=== PATIENT | female | born 1955 | race Caucasian/White ===

== ENCOUNTER 2018-07-08 03:41 | Inpatient (IN) | payer OTHER ==
[~2018-07-08] VITALS: Ht 167.6 cm; Wt 104.3 kg
[~2018-07-08 03:41] MED LIST: AMBIEN10 M1 PO; ENABLEX15 M1 PO; LIPITOR40 M1 PO; METOPROLOL SUCC50 M2 PO; PERCOCET 10-321 EACH PO; TRINTELLIX5 MG PO
--- NOTE | 2018-07-08 08:07 | Admission Core Measures ---
Acute Coronary Syndrome (CM) ACS Core Measures Acute Coronary Syndrome Diagnosis No Congestive Heart Failure (NEW) CHF Core Measures Congestive Heart Failure Diagnosis No Cerebrovascular Accident CVA Core Measures CVA/TIA Diagnosis No Venous Thromboembolism VTE Core Bianka (View Protocol) VTE Risk Factors Surgery No Mechanical VTE Prophylaxis d/t N/A MechProphylax Ordered No VTE Pharm Prophylaxis d/t NA PharmProphylax ordered Problem List As ranked by this Provider includes Assessment & Plan 1. Morbid obesity 2. Hypertension 3. S/P laparoscopic sleeve gastrectomy HOME MEDS Home Med List Atorvastatin Calcium (Lipitor) 40 MG TABLET 1 TAB PO DAILY CHOLESTEROL ( Reported) Darifenacin Hydrobromide (Enablex) 15 MG TAB.ER.24H 1 TAB PO DAILY URINARY FREQ (Reported) Metoprolol Succinate 50 MG TAB.ER.24H 1 TAB PO DAILY BP (Reported) Oxycodone HCl/Acetaminophen (Percocet 10-325 MG Tablet) 10 MG-325 MG TABLET 1 TAB PO 4 TIMES/DAY PRN NECK PAIN (Reported) Vortioxetine Hydrobromide (Trintellix) 5 MG TABLET 10 MG PO DAILY BEHAVIOR ( Reported) Zolpidem Tartrate (Ambien) 10 MG TABLET 1 TAB PO QPMP PRN SLEEP (Reported)
--- NOTE | 2018-07-08 12:20 | Operative Report ---
Operative/Inv Procedure Report Surgery Date: 07/08/18 Name of Procedure: Laparoscopic Sleeve Gastrectomy Pre-Operative Diagnosis: Morbid Obesity BMI 40, HTN, Hyperlipidemia Post-Operative Diagnosis: Same Estimated Blood Loss: less than 50ml Surgeon/Electrical Cad Technician: Robbie Frank DO Anesthesia: general endotracheal tube IV Fluids: 1000 cc Drains: None Specimens: Stomach Complications: None Condition: Stable Operative Indication: This is a 62-year-old female who presented to the office for workup for bariatric surgery. After appropriate workup was completed I discussed with the patient the band, the sleeve, and the gastric bypass. The patient chose to undergo a sleeve gastrectomy. All risks including but not limited to bleeding, infection, leak, stricture, injury to surrounding bowel/esophagus/stomach/liver/ spleen, long-term reflux, DVT/PE, and mortality of 10/999 patients were discussed in detail. The patient understood everything and decided to proceed. Operative/Procedure Note Note: The patient was brought to the operating room and placed on the operating room table in supine position. Venodyne stockings were placed and adequate general endotracheal anesthesia was obtained. The patient was prepped and draped in standard surgical fashion. Began the procedure by making a 2 cm transverse incision supraumbilically and slightly to the left of the midline. Then using a 12 mm clear Visiport and a 10 mm 0 laparoscope, the abdominal cavity was accessed. Great care was taken to go through the anterior rectus sheath, the posterior rectus sheath, and through the peritoneum. Once we entered the peritoneum the abdominal cavity was insufflated to 15 mmHg. Upon initial examination no obvious gross pathology was seen. Accessory trocars were placed, 5 mm in the epigastrium for the Abdiel liver retractor. The retractor was inserted and the liver was retracted anteriorly exposing the hiatus, no hiatal hernia was seen. 5 mm ports were placed in the right and left upper quadrant, a 5 mm left lateral port, and a 15 mm right lateral port. Began the procedure by mobilizing the greater curvature of the stomach approximately 7 cm from the pylorus. Once the retrogastric space was reached the whole greater curvature was mobilized maintaining hemostasis using Harmonic scalpel. Full hiatal dissection was performed, no hiatal hernia was seen. Posterior adhesions were taken down using Harmonic scalpel as well. Once the stomach was adequately mobilized a 38 [place] bougie was inserted and placed along the lesser curvature of the stomach. Once the bougie was in the appropriate position we began creating our sleeve, two 60 mm black staple loads with seamguard followed by two 60 mm purple staple loads with seamguard as well and finished with a 45 mm purple plain load. Great care was taken to leave ample room at the incisura angularis, to prevent any twisting or kinking of the sleeve, to stay lateral to the esophagogastric fat pad, and to do a full fundal excision. At the completion of the staple line the staple line was examined, it appeared intact and no obvious bleeding was noted. The bougie was removed, the sleeve was lying nicely without any twisting or kinking. The resected stomach was removed through the right lateral port site. The port and the left upper quadrant were irrigated until clear. All ports were removed under direct visualization no obvious bleeding was noted. The 15 mm port site fascia was closed using 0 Vicryl suture. The skin was closed using 4-0 Monocryl. Steri-Strips and dressings were placed. The patient was successfully extubated and transferred to the recovery room in stable condition. The patient tolerated the procedure well with no complications. Findings: No hiatal hernia, 38 Fr bougie CC: Zeke ABREU,Mando
--- NOTE | 2018-07-08 13:02 | Surg Short-stay <48hrs Dis Sum ---
Visit Information Visit Dates Admission Date: 07/08/18 Discharge Date: 07/10/18 Surgical Short Stay DC Summary Admission Diagnosis: Morbid Obesity (BMI 40), HTN, Hyperlipidemia Final Diagnosis: Morbid Obesity (BMI 40), HTN, Hyperlipidemia Procedure(s): Surgery Date: 07/08/18 Name of Procedure: Laparoscopic Sleeve Gastrectomy Summary/Significant Findings: Electively scheduled laparoscopic sleeve gastrectomy on 07/08/18 by , for history of morbid obesity (BMI 40), hypertension, and hyperlipidemia. Started on a stage 1 bariatric diet post-operatively. Upper gi study done POD#1 to rule out leak and obstruction. Pain control transitioned from iv to oral medication as able. Lovenox teaching done prior to discharge home, according to her pre-operative risk assessment. Condition at Discharge: stable Discharge Disposition: home or self care Discharge instructions provided to patient/family: Yes Post discharge follow-up plan: one week follow up with continue lovenox injections as directed Copies to: Zeke ABREU,Mando
--- NOTE | 2018-07-08 13:06 | Patient Discharge Instructions ---
Discharge Instructions General Discharge Information You were seen/treated for: Morbid Obesity (BMI 40), HTN, Hyperlipidemia You had these procedures: Surgery Date: 07/08/18 Name of Procedure: Laparoscopic Sleeve Gastrectomy Watch for these problems: fever>101.3, increased pain, redness/swelling/drainage, dizziness, shortness of breath, chest pains No bath, but you may shower: Yes Other wound care: ok to remove outer dressings. leave white steri strips in place. keep incisions clean & dry. Diet Continue normal diet: No Recommended Diet: Bariatric Additional DIET Information: weekly bariatric stage diet advancement as tolerated, as directed Activity Full Activity/No Limits: No Activity Self Limited: Yes Pounds, do NOT lift more than: 10 Other activity limits: no heavy lifting. no strenuous activity. Acute Coronary Syndrome Inclusion Criteria At DC or during hospital stay patient has or had the following: ACS DIAGNOSIS No Discharge Core Measures Meds if any: Prescribed or Continued at Discharge Meds if any: NOT Prescribed or Continued at Discharge Congestive Heart Failure Inclusion Criteria At DC or during hospital stay patient has or had the following: CHF DIAGNOSIS No Discharge Core Measures Meds if any: Prescribed or Continued at Discharge Meds if any: NOT Prescribed or Continued at Discharge Cerebrovascular accident Inclusion Criteria At DC or during hospital stay patient has or had the following: CVA/TIA Diagnosis No Discharge Core Measures Meds if any: Prescribed or Continued at Discharge Meds if any: NOT Prescribed or Continued at Discharge Venous thromboembolism Inclusion Criteria VTE Diagnosis No VTE Type NONE VTE Confirmed by (Test) NONE Discharge Core Measures - Per Current guidelines, there needs to be overlap - treatment for the first 5 days of Warfarin therapy. - If discharged on Warfarin prior to 5 days of - overlap therapy, the patient will need to be - assessed for post discharge needs including - *Post discharge parental anticoagulation - *Warfarin and/or parental anticoagulation education - *Follow up date to check INR post discharge At least 5 days overlap therapy as Inpatient No Meds if any: Prescribed or Continued at Discharge Note: Overlap Therapy is Warfarin and Anticoagulant Meds if any: NOT Prescribed or Continued at Discharge
[2018-07-08] MEDS ORDERED: LOVENOX40 MG/0.1 SC (13:10)
[2018-07-08] MEDS ORDERED: OXYCODONE HCL10 M2 PO (13:10)
[2018-07-08] MEDS ORDERED: PROTONIX40 M3 PO (13:10)
[2018-07-08 14:45] VITALS: BP 150/76
--- NOTE | 2018-07-08 14:58 | PN- Student ---
Cortney Black 07/08/18 6319: Subjective Subjective: Pt complaining of abdominal/epigastric pain that is currently 5/10. Pain has decreased from a 10/10. She has ambualted and voided without difficulty. Tolerating sips of water without any nausea or vomiting. Denies any CP, SOB, difficulty breathing, headahce or dizziness. Objective Objective: Vitals: See EMR General: Middle aged, obese, female, sitting up in her chair, appears comfortable and in NAD. Cardio: Reg rate and rhythm. S1 and S2. No murmurs, rubs or gallops. Pulm: Clear breath sounds with no wheezes, rhonchi or rales. Abdomen: Dressings are clean dry and intact. Softly distended abdomen. Faint bowel sounds auscultated. Slightly tender to palpation. Ext: ALPs in place. Bilaterally calves are soft and non-tender. Assessment/Plan Assessment: 62 y/o F POD#0 s/p laparoscopic sleeve gastrectomy. PMH includes MO, HTN, and HLD. Pt is doing well post-operatively and tolerated the procedure well. Pain is being controlled. Plan: Continue with pain contras needed. Zofran as needed for nausea. Simethicone for gas pain. Cefazolin continued. Hep SQ for DVT ppx. Encourage ambulation and incentive spirometry use. Lovenox teaching and d/c home on lovenox. Bariatric stage 1 diet. NPO at midnight for possible UGI study in am. continue home medications. discuss w Yuridia Patiño 07/08/18 6852: Assessment/Plan Plan: AGREE WITH ABOVE PA-S NOTE tolerating stage 1 diet she understands the pharmacy does not carry a few of her home meds, but she states she does not need to take them for the next few days oob/ambulation encouraged f/u AM labs and possible upper gi study faheem-operative ancef x 2 doses will d/w
[2018-07-08 16:43] VITALS: BP 150/88
[2018-07-08 20:38] VITALS: BP 132/74
[2018-07-09 06:30] VITALS: BP 167/94
[2018-07-09 09:03] LABS: ABSOLUTE BASOPHIL COUNT 0 /CUMM (0.0-0.2); ABSOLUTE EOSINOPHIL COUNT 0 /CUMM (0.0-0.7); ABSOLUTE MONOCYTE COUNT 0.6 /CUMM (0.10-0.60); BASOPHIL % 0.2 % (0.0-2.0); EOSINOPHIL % 0.1 % (0-5)
--- NOTE | 2018-07-09 09:08 | PN- Student ---
Merly Nunez 07/09/18 0847: Subjective Subjective: Pt c/o nausea, vomiting, and intense periumbilical pain (07/22) starting at 4 am. Pt approximates emesis was "about a coffee cup" with half cup or so of coffee-ground emesis followed by bilious emesis. Nausea and vomiting controlled w/ zofran, no current nausea or vomiting. Pain initially resolved w/ dilaudid and toradol, but pain was exacerbated when pt got up from bed. Pain currently at 2/10 and described as dull, periumbilical, and nonradiating. Pt denies fever/ chills, chest pain, SOB, back pain, and all other ROS negative. Pt has been burping since surgery, but no flatus or BM. Urinating and ambulating independently. Pt is NPO and has been using spirometer frequently. Objective Objective: Exam: Gen: pt sitting in bed clutching abdomen in pain, A&OX4 Cardiac: S1S2, no M, R, G Lungs: CTA BL Abdomen: Soft, protuberant, -BS with voluntary guarding. Exquisitely ttp at epigastric and periumbilical regions w/ no rebound. Dressings covering port sites are clean and intact and appear mostly dry, but 1 has evidence of bleeding since surgery. Extremities: DP/PT pulses 2+ BL, no edema, no pain Results Results: Laboratory Tests 07/09/18 0726: Sodium Pending, Potassium Pending, Chloride Pending, Carbon Dioxide Pending, Anion Gap Pending, BUN Pending, Creatinine Pending, BUN/Creatinine Ratio Pending , Glucose Pending, Magnesium Pending, CBC w Diff Pending, WBC Pending, RBC Pending, Hgb Pending, Hct Pending, MCV Pending, MCH Pending, MCHC Pending, RDW Pending, Plt Count Pending, MPV Pending Exam & Diagnostic Data Vital Signs and I&O Vital Signs Date Time Temp Pulse Resp B/P B/P Pulse O2 O2 Flow FiO2 Mean Ox Delivery Rate 07/09 0800 95 Room Air 07/09 0630 98.5 62 20 167/94 94 Room Air 07/08 2200 96 Room Air 07/08 2132 64 132/74 07/08 2038 98.2 64 20 132/74 96 Room Air 07/08 1941 Room Air 07/08 1800 96 Room Air 07/08 1643 97.9 70 20 150/88 96 Room Air 07/08 1600 96 Room Air 07/08 1445 98.4 63 18 150/76 96 Room Air Intake & Output 07/09 0807/09 0000 07/08 1600 07/08 0000 Intake Total 1050 1760 350 Output Total 527 644 9966 300 Balance -150 520 660 50 Intake, IV 1050 1370 260 Intake, Oral 0 390 90 Number 0 0 Bowel Movements Output, 30 Emesis Output, Urine 098 515 0086 300 Patient 230 lb Weight Weight Bed scale Measurement Method Assessment/Plan Assessment: Pt is a 62 y/o F w/ PMH of morbid obesity, HTN, and neck pain currently POD#1 s/ p lap sleeve gastrectomy with current symptoms concerning for acute intraluminal bleed and elevated systolic BP d/t pain. Plan: Neuro: acetaminophen 1000mg IV Q6hrs, morphine 2mg IV Q4-6hrs PRN, and oxycodone 20-30mg PO Q6hrs PRN for pain. ambien 5mg at bedtime for insomnia. Cardiac: metoprolol tartrate 25mg PO BID for HTN Lungs: incentive spirometry 10x/hr every hr IVF: D5W NS 1000mL IV Q8hr at 125 mL/hr GI: pantoprazole 40mg IV daily and tums 500mg PO daily for stomach protection. simethicone 40mg PO Q6hrs PRN for constipation, zofran 4mg IV Q6hrs PRN for nausea. When tolerated, upper GI study indicated for evaluation of potential bleed and/or leak. : voiding independently Heme: heparin 5000U SC Q8hrs Dispo/other: f/u am labs Robbie Frank DO 07/09/18 1656: Attending MD Review Statement Attending Sign Off Attending Cosign Statement: I have: examined this patient, reviewed aval EMR data, personally reviewd images, discussd w/resident/PA/ETL APPLICATION DEVELOPER, discussed mgmt plan w/pt, agreed w/resident/ PA/ETL APPLICATION DEVELOPER. Other Findings: Patient seen and examined, agree with above. Feels better, pain ok, started tolerating diet. AVSS UO ok. Abd -soft. Labs ok. UGI ok. Stage I diet, OOB, DVT prophylaxis.
[2018-07-09 09:37] LABS: ABSOLUTE GRANULOCYTE CT 7.9 /CUMM (1.4-6.5); ABSOLUTE LYMPH COUNT 2.3 /CUMM (1.2-3.4); GRANULOCYTE % 73.2 % (42.2-75.2); MEAN CORPUSCULAR HGB 29.4 PG (27.0-31.0); MEAN CORPUSCULAR HGB CONC 33.8 G/DL (33.0-37.0); MEAN CORPUSCULAR VOLUME 87.2 FL (81.0-99.0); MEAN PLATELET VOLUME 9.1 FL (7.4-10.4); PLATELET COUNT 224 /CUMM (130-400); RBC DISTRIBUTION WIDTH 13.7 % (11.5-14.5); WHITE BLOOD CELL COUNT 10.9 /CUMM (4.8-10.8)
[2018-07-09 10:01] LABS: HEMATOCRIT 33.1 % (37-47)
[2018-07-09 10:10] LABS: ABSOLUTE BASOPHIL COUNT 0 /CUMM (0.0-0.2); ABSOLUTE EOSINOPHIL COUNT 0 /CUMM (0.0-0.7); ABSOLUTE GRANULOCYTE CT 9.9 /CUMM (1.4-6.5); ABSOLUTE LYMPH COUNT 1.4 /CUMM (1.2-3.4); ABSOLUTE MONOCYTE COUNT 0.1 /CUMM (0.10-0.60); BASOPHIL % 0 % (0.0-2.0); EOSINOPHIL % 0 % (0-5); HEMATOCRIT 35.6 % (37-47); MEAN CORPUSCULAR HGB 29.3 PG (27.0-31.0); MEAN CORPUSCULAR HGB CONC 34.3 G/DL (33.0-37.0); MEAN CORPUSCULAR VOLUME 85.5 FL (81.0-99.0); MEAN PLATELET VOLUME 8.4 FL (7.4-10.4); PLATELET COUNT 242 /CUMM (130-400); RBC DISTRIBUTION WIDTH 13.8 % (11.5-14.5); RED BLOOD CELL CT 4.17 /CUMM (4.20-5.40); WHITE BLOOD CELL COUNT 11.5 /CUMM (4.8-10.8)
--- NOTE | 2018-07-09 10:28 | PN- General Surgery ---
See Addendum Subjective Subjective: 62 Y/O female S/P gastric sleeve. Started with vomiting 2 hours ago and worsening epigastric pain. NO fevers or chills, VSS Objective Vital Signs and I&Os Vital Signs Date Time Temp Pulse Resp B/P B/P Pulse O2 O2 Flow FiO2 Mean Ox Delivery Rate 07/08 2200 96 Room Air 07/08 2132 64 132/74 07/08 2038 98.2 64 20 132/74 96 Room Air 07/08 1941 Room Air 07/08 1800 96 Room Air 07/08 1643 97.9 70 20 150/88 96 Room Air 07/08 1600 96 Room Air 07/08 1445 98.4 63 18 150/76 96 Room Air Intake & Output 07/09 0800 07/09 0000 07/08 1600 07/08 0807/08 0000 07/07 1600 Intake Total 1165 350 Output Total 800 300 Balance 365 50 Intake, IV 895 260 Intake, Oral 270 90 Number 0 Bowel Movements Output, Urine 800 300 Patient 230 lb Weight Weight Bed scale Measurement Method Physical Exam: patient alert and oriented -moderate distress VSS afebrile chest -CTA symmetric heart-RRR without MRG Abdomen -rounded, obese TTP eigastric area, guarding no BS Current Medications: Current Medications Sig/Andrea Start time Last Medication Dose Route Stop Time Status Admin Acetaminophen 1,000 MG Q6H 07/08 1800 AC 07/09 N/A 1 UNIT IV 07/09 1214 0654 Acetaminophen 0 .STK-MED ONE 07/08 1355 DC IV Bupivacaine HCl 0 .STK-MED ONE 07/08 1024 DC .ROUTE Calcium Carbonate 500 MG DAILY 07/08 2045 AC 07/08 PO 2337 Cefazolin Sodium 2,000 MG IQ8 07/08 1800 CAN IV 07/09 0001 Cefazolin Sodium 2 GM Q8H 07/08 1800 DC 07/09 N/A 1 UNIT IV 07/09 0229 0126 Cefazolin Sodium 2,000 MG ONCE 07/08 0000 DC IV 07/08 2359 Dexamethasone 8 MG ONCE ONE 07/09 0715 AC IV PUSH 07/09 0716 Dexamethasone 8 MG ONCE PRN 07/08 1500 DC IV PUSH 07/08 2359 Dextrose/Sodium 1,000 ML Q8H 07/08 1500 AC 07/09 Chloride IV 0654 Fentanyl Citrate 0 .STK-MED ONE 07/08 1032 DC .ROUTE Heparin Sodium 5,000 UNIT Q8 07/08 1400 AC 07/09 (Porcine) SC 0655 Heparin Sodium 5,000 UNIT ONCE 07/08 0000 DC (Porcine) SC 07/08 2359 Hydromorphone HCl 1 MG ONCE ONE 07/09 0715 AC IV 07/09 0716 Hydromorphone HCl 0 .STK-MED ONE 07/08 1347 DC .ROUTE Hydromorphone HCl 0 .STK-MED ONE 07/08 1333 DC .ROUTE Hydromorphone HCl 0 .STK-MED ONE 07/08 1321 DC .ROUTE Hydromorphone HCl 0 .STK-MED ONE 07/08 1309 DC .ROUTE Hydromorphone HCl 0 .STK-MED ONE 07/08 1250 DC .ROUTE Hydromorphone HCl 0 .STK-MED ONE 07/08 1237 DC .ROUTE Hydromorphone HCl 0 .STK-MED ONE 07/08 1230 DC .ROUTE Hydromorphone HCl 0 .STK-MED ONE 07/08 1032 DC .ROUTE Influenza Virus 0.5 ML ONCE ONE 07/08 1645 DC Vaccine IM 07/08 1646 Metoprolol Tartrate 25 MG BID 07/08 2100 AC 07/08 PO 2132 Midazolam HCl 0 .STK-MED ONE 07/08 1356 DC .ROUTE Midazolam HCl 0 .STK-MED ONE 07/08 1032 DC .ROUTE Morphine Sulfate 2 MG Q4-6 PRN PRN 07/08 1500 AC 07/09 IV 0416 Non-Formulary 0 SEE ADMIN CRITERIA 07/08 1500 DC Medication ANY Non-Formulary 0 SEE ADMIN CRITERIA 07/08 1500 DC Medication ANY Ondansetron HCl 4 MG Q6P PRN 07/08 1500 AC 07/09 IV 0412 Oxycodone HCl 10 MG Q4-6 PRN PRN 07/08 1500 AC 07/08 PO 1619 Oxycodone HCl 20 MG Q4-6 PRN PRN 07/08 1500 AC 07/08 PO 2344 Pantoprazole Sodium 40 MG DAILY 07/09 0900 AC IV Simethicone 40 MG Q6P PRN 07/08 1500 AC 07/08 PO 2056 Trimethobenzamide HCl 200 MG ONCE ONE 07/09 0630 DC 07/09 IM 07/09 0631 0624 Trimethobenzamide HCl 0 .STK-MED ONE 07/09 0626 DC IM Zolpidem Tartrate 5 MG AT BEDTIME NEED.. 07/08 0815 AC 07/08 PO 2215 Results Last 48 Hours of Labs: UGI pending for this am Assessment/Plan Assessment/Plan POD 1 gastric sleeve continuous vomiting this morning NPO, decadron, dilaudid for pain control continue IVF UGI this am will reasses after study will discuss with Dr. Frank Core Measures Venous Thromboembolism VTE Risk Factors Surgery No Mechanical VTE Prophylaxis d/t N/A MechProphylax Ordered No VTE Pharm Prophylaxis d/t NA PharmProphylax ordered
[2018-07-09 11:01] LABS: GRANULOCYTE % 86.2 % (42.2-75.2)
--- NOTE | 2018-07-09 13:41 | RADIOLOGY REPORT ---
EXAMINATION: FL UPPER GI SERIES CLINICAL INFORMATION: Status post sleeve gastrectomy. Evaluate for leak or obstruction. COMPARISON: None. TECHNIQUE: 2 preliminary AP views of the abdomen are obtained. A water-soluble contrast upper GI series with fluoroscopy and spot imaging was performed. The patient ingested 30 mL of Gastroview without difficulty and was evaluated in the upright position. The patient reportedly has a prior allergic reaction to intravenous contrast. The patient reportedly had been medicated postoperatively with Decadron beginning yesterday afternoon. The patient was also reportedly given 50 mg of Benadryl prior to the procedure by the physician recycling assistant. FINDINGS: There are sleeve gastrectomy changes. Linear densities adjacent to the fundus of the stomach are likely related to surgical kendal. There is otherwise no evidence of leak or obstruction. Contrast flows easily through the esophagus, stomach, and duodenum. FLUOROSCOPY TIME: 0.45 minutes. NUMBER OF FLUOROSCOPIC IMAGES: 12 images IMPRESSION: No definite evidence of leak or obstruction.
[2018-07-09 13:57] VITALS: BP 128/78
[2018-07-09 21:33] VITALS: BP 116/57
[2018-07-09 23:28] VITALS: BP 160/91
[2018-07-10 07:00] VITALS: BP 112/55
--- NOTE | 2018-07-10 07:07 | PN- Student ---
Cortney Black 07/10/18 0655: Subjective Subjective: Pt reports improved pain since yesterday. She continued to be slightly nauseous last night but it has since resolved. She has not had any further episodes of vomitus after yesterday. She reports +flatus and belching and that she feels better after doing so. She has ambulated without difficulty. She has been voiding without difficulty. She has not yet had a bowel movement. She feels less distention in her abdomen this am. She denies any CP, SOB, difficulty breathing, headache or dizziness. Objective Objective: Vitals: See EMR General: Elderly female, lying in bed, appropriated mood and affect, NAD. Cardio: Regular rate and rhythm. S1 and S2. No murmurs, rubs or gallops. Pulm: Clear breath sounds auscultated in all lung gibbons with no wheezes, rhonchi or rales. Abdomen: Softly distended. Bowel sounds appreciated. Tympanitic to percussion. Mildly tender to palpation diffusely. Dressings clean, dry and intact. Extremities: Calves are soft and non-tender bilaterally. Gross motor and sensation intact and equal bilaterally. 2+ radial pulses palpated bilaterally, non-bounidng, smooth, and even. Results Results: Laboratory Tests 07/09/18 0945: Anion Gap 8, Estimated GFR > 60, BUN/Creatinine Ratio 13.3, Glucose 159 H, Magnesium 1.8, CBC w Diff NO MAN DIFF REQ, RBC 4.17 L, MCV 85.5, MCH 29.3, MCHC 34.3, RDW 13.8, MPV 8.4, Gran % 86.2 H, Lymphocytes % 12.5 L, Monocytes % 1.3 L, Eosinophils % 0, Basophils % 0, Absolute Granulocytes 9.9 H, Absolute Lymphocytes 1.4, Absolute Monocytes 0.1, Absolute Eosinophils 0, Absolute Basophils 0 07/09/18 0726: Anion Gap 7, Estimated GFR > 60, BUN/Creatinine Ratio 12.0, Glucose 473 H, Magnesium 1.5 L, CBC w Diff NO MAN DIFF REQ, RBC 3.80 L, MCV 87.2, MCH 29.4, MCHC 33.8, RDW 13.7, MPV 9.1, Gran % 73.2, Lymphocytes % 21.4, Monocytes % 5.1, Eosinophils % 0.1, Basophils % 0.2, Absolute Granulocytes 7.9 H, Absolute Lymphocytes 2.3, Absolute Monocytes 0.6, Absolute Eosinophils 0, Absolute Basophils 0 Assessment/Plan Assessment: 62 y/o F POD#2 s/p laparoscopic sleeve gastrectomy. PMH includes morbid obesity, HTN, and chronic neck pain. Post-operative pain is being better controlled and vital signs remain stable. Post-operative nausea has resolved and patient is doing well. Plan: Continue with PO pain medications. Hep SQ for DVT ppx. Lovenox teaching and pt to be discharged home on Lovenox. Continue home medications. Dressing change. Continue with daily dry dressing change. Pt most likely d/c later today on Bariatric Stage 1 diet. Will discuss w Dr. Frank. Yuridia Frederick 07/10/18 0711: Assessment/Plan Plan: agree with above PA-S note d/c home today
--- NOTE | 2018-07-10 07:10 | PN- Bariatrics ---
Subjective Subjective: No complaints. Denies nausea / vomiting. Tolerating stage 1 diet. Upper gi study negative for leak and obstruction yesterday. Passing flatus. Voiding well. Ambulating without difficulty. Denies shortness of breath. No chest pains. Reports understanding of lovenox injections. Anticipates discharge home today. Objective Vital Signs and I&Os Vital Signs Date Time Temp Pulse Resp B/P B/P Pulse O2 O2 Flow FiO2 Mean Ox Delivery Rate 07/10 0600 95 Room Air 07/09 2328 98.4 52 20 160/91 96 Room Air 07/09 2200 Room Air 07/09 2135 63 116/57 07/09 2133 98.1 63 16 116/57 97 Room Air 07/09 1400 96 Room Air 07/09 1357 98.0 61 20 128/78 97 Room Air 07/09 0911 68 142/80 07/09 0800 95 Room Air Intake & Output 07/10 0800 07/10 0000 07/09 1600 07/09 0800 07/09 0000 07/08 1600 Intake Total 780 1330 1150 1050 1760 350 Output Total 250 250 960 235 4825 300 Balance 530 1080 650 520 660 50 Intake, IV 750 1000 1000 1050 1370 260 Intake, Oral 30 330 150 0 390 90 Number 0 0 0 Bowel Movements Output, 30 Emesis Output, Urine 250 250 635 643 7821 300 Patient 230 lb Weight Weight Bed scale Measurement Method Physical Exam: General - alert & oriented x 3. comfortable. no acute distress. Lungs - clear bilaterally. no w/r/r. Cardiac - s1s2. reg. Abdomen - soft. dressings c/d/i. no drains. faheem-incisional tenderness. Extremities - warm bilaterally. no c/c/e. calves soft and nontender b/l. Current Medications: Current Medications Sig/Andrea Start time Last Medication Dose Route Stop Time Status Admin Acetaminophen 1,000 MG Q6H 07/08 1800 DC 07/09 N/A 1 UNIT IV 07/09 1214 0654 Calcium Carbonate 500 MG DAILY 07/08 2045 AC 07/09 PO 0911 Dexamethasone 8 MG ONCE ONE 07/09 0715 DC 07/09 IV PUSH 07/09 0716 0716 Dextrose/Sodium 1,000 ML Q8H 07/08 1500 AC 07/10 Chloride IV 0017 Diphenhydramine HCl 50 MG 1045 07/09 1045 DC 07/09 IV 07/09 1046 1107 Heparin Sodium 5,000 UNIT Q8 07/08 1400 AC 07/10 (Porcine) SC 0557 Hydromorphone HCl 1 MG ONCE ONE 07/09 0715 DC 07/09 IV 07/09 0716 0716 Ketorolac 15 MG Q6 07/09 1800 AC 07/10 Tromethamine IV 07/11 1201 0552 Ketorolac 30 MG ONCE ONE 07/09 0730 DC 07/09 Tromethamine IV 07/09 0731 0743 Metoprolol Tartrate 25 MG BID 07/08 2100 AC 07/09 PO 2135 Morphine Sulfate 2 MG Q4-6 PRN PRN 07/08 1500 AC 07/09 IV 0416 Ondansetron HCl 4 MG Q6P PRN 07/08 1500 AC 07/09 IV 0412 Oxycodone HCl 10 MG Q4-6 PRN PRN 07/08 1500 AC 07/08 PO 1619 Oxycodone HCl 20 MG Q4-6 PRN PRN 07/08 1500 AC 07/10 PO 0107 Pantoprazole Sodium 40 MG DAILY 07/09 0900 AC 07/09 IV 0911 Simethicone 40 MG Q6P PRN 07/08 1500 AC 07/08 PO 2056 Zolpidem Tartrate 5 MG AT BEDTIME NEED.. 07/08 0815 AC 07/08 PO 2215 Results Last 48 Hours of Labs: Laboratory Tests 07/09 07/09 0945 0726 Chemistry Sodium (137 - 145 mmol/L) 140 138 Potassium (3.5 - 5.1 mmol/L) 4.4 3.3 L Chloride (98 - 107 mmol/L) 107 108 H Carbon Dioxide (22 - 30 mmol/L) 25 22 Anion Gap (5 - 16) 8 7 BUN (7 - 17 mg/dL) 8 6 L Creatinine (0.5 - 1.0 mg/dL) 0.6 0.5 Estimated GFR (>60 ml/min) > 60 > 60 BUN/Creatinine Ratio (7 - 25 %) 13.3 12.0 Glucose (65 - 99 mg/dL) 159 H 473 H Magnesium (1.6 - 2.3 mg/dL) 1.8 1.5 L Hematology CBC w Diff NO MAN DIFF REQ NO MAN DIFF REQ WBC (4.8 - 10.8 /CUMM) 11.5 H 10.9 H RBC (4.20 - 5.40 /CUMM) 4.17 L 3.80 L Hgb (12.0 - 16.0 G/DL) 12.2 11.2 L Hct (37 - 47 %) 35.6 L 33.1 L MCV (81.0 - 99.0 FL) 85.5 87.2 MCH (27.0 - 31.0 PG) 29.3 29.4 MCHC (33.0 - 37.0 G/DL) 34.3 33.8 RDW (11.5 - 14.5 %) 13.8 13.7 Plt Count (130 - 400 /CUMM) 242 224 MPV (7.4 - 10.4 FL) 8.4 9.1 Gran % (42.2 - 75.2 %) 86.2 H 73.2 Lymphocytes % (20.5 - 51.1 %) 12.5 L 21.4 Monocytes % (1.7 - 9.3 %) 1.3 L 5.1 Eosinophils % (0 - 5 %) 0 0.1 Basophils % (0.0 - 2.0 %) 0 0.2 Absolute Granulocytes (1.4 - 6.5 /CUMM) 9.9 H 7.9 H Absolute Lymphocytes (1.2 - 3.4 /CUMM) 1.4 2.3 Absolute Monocytes (0.10 - 0.60 /CUMM) 0.1 0.6 Absolute Eosinophils (0.0 - 0.7 /CUMM) 0 0 Absolute Basophils (0.0 - 0.2 /CUMM) 0 0 Assessment/Plan Assessment/Plan This 62 year old female with hx of morbid obesity, htn, and neck pain, is POD#2 s/p lap sleeve gastrectomy, resolved nausea / vomiting tolerating stage 1 diet pain controlled with oxycodone oob/ambulating without difficulty protonix - gi ppx hep sc - dvt ppx lovenox teaching done continue metoprolol for ongoing hypertension d/c home today will d/w Core Measures Venous Thromboembolism VTE Risk Factors Surgery No Mechanical VTE Prophylaxis d/t N/A MechProphylax Ordered No VTE Pharm Prophylaxis d/t NA PharmProphylax ordered
[2018-07-10] MEDS ORDERED: OXYCODONE HCL10 M2 PO (07:13)
[2018-07-10] MEDS ORDERED: PROTONIX40 M3 PO (07:13)
[2018-07-10 08:26] VITALS: BP 148/84
[2018-07-10 08:27] VITALS: BP 148/84
== END 2018-07-10 13:58 | DRG 621 ==
LOC: SDA 03:41 → ENRESERV 13:00 → ENTRNSPT 14:14 → EDTRNSPTSTS 14:17 → EDTRNSPT 14:17 → 2NB 14:24 → CMPTRNSPT 14:42 → ENPENDDIS 07-10 08:10 → ENTRNSPT 07-10 13:43 → EDTRNSPT 07-10 13:54 → EDTRNSPTSTS 07-10 13:54 → 2NB 07-10 13:58 → CMPTRNSPT 07-10 14:22
PROVIDERS: Nurse Practitioner; Physician Assistant
PROC: 0DB64Z3 Excision of Stomach, Percutaneous Endoscopic Approach, Vertical (ICD-10-PCS; principal; 2018-07-08)
PROC: 3E0T3BZ Introduction of Anesthetic Agent into Peripheral Nerves and Plexi, Percutaneous Approach (ICD-10-PCS; principal; 2018-07-08)
DX: E66.01 Morbid (severe) obesity due to excess calories (principal); Z68.37 Body mass index [BMI] 37.0-37.9, adult; I10 Essential (primary) hypertension; E78.5 Hyperlipidemia, unspecified; K21.9 Gastro-esophageal reflux disease without esophagitis; Z87.891 Personal history of nicotine dependence; F32.9 Major depressive disorder, single episode, unspecified; Z88.8 Allergy status to other drugs, medicaments and biological substances; Z98.1 Arthrodesis status
CPT/HCPCS: 2NBP; 36415; 36592; 74240; 82436; J0131; J0690; J1100; J1200; J1644; J1885; J2405; J3250; J7042